=== PATIENT | female | born 1995 | race Two or more races ===

== ENCOUNTER 2017-05-12 16:15 | Emergency (ER) | payer OTHER ==
[2017-05-12 16:24] VITALS: TEMP 98.8; BMI 29.2
--- NOTE | 2017-05-12 16:24 | PDOC ---
History of Present Illness - General History Source: Patient Exam Limitations: No Limitations - History of Present Illness Initial Comments: 05/12/17 18:39 The patient is a 22-year-old female, with a significant past medical history of ulcerative colitis (in remission, not on meds), renal colic, and pcos, who presents to the ED with 2 weeks of progressively worsening left flank pain. Pt states that the pain she is experiencing now is not the same pain she experienced with kidney stones. When the patient had kidney stones she experienced left lower quadrant pain that radiated to her lower back. The patients pain now is localized to her left flank area and is constant and sharp in sensation. She reports that her pain progressively worsened last night. She is unable to lay on the area or stand/sit for long periods due to the pain. The pt thought that her pain was being caused by a cyst so she went to her [facility] doctor yesterday where they performed a transvaginal US. The US was negative for a cyst by her report. She reports that she is urinating fine and is not experiencing any dysuria, hematuria, frequency, urgency, or hesitancy. Pts last bowel movement was today and was normal. The patient has been taking Advil with no relief of her symptoms. She denies any fever, chills, nausea, vomiting, diarrhea, or abdominal pain. <Mariaelena Castro - Last Filed: 05/12/17 18:39> <Judy Zhang - Last Filed: 05/13/17 08:13> - General Chief Complaint: Pain Stated Complaint: LEFT LOWER RIBCAGE PAIN, TENDERNESS Time Seen by Provider: 05/12/17 16:23 Past History <Mariaelena Castro - Last Filed: 05/12/17 18:39> - Past Medical History Asthma: No Diabetes: No GI Disorders: Yes (ulcer colitis, currently on no meds) Disorders: No HTN: No - Surgical History Appendectomy: Yes (01/2012) - Immunization History Td Vaccination: Yes Immunization Up to Date: Yes - Suicide/Smoking/Psychosocial Hx Smoking Status: No Smoking History: Never smoked Have you smoked in the past 12 months: No Number of Cigarettes Smoked Daily: 0 Cigars Per Day: 0 Hx Alcohol Use: No Drug/Substance Use Hx: No Substance Use Type: None <Judy Zhang - Last Filed: 05/13/17 08:13> - Past Medical History Allergies/Adverse Reactions: Allergies Allergy/AdvReac Type Severity Reaction Status Date / Time Penicillins Allergy Verified 05/12/17 16:17 Home Medications: Ambulatory Orders Naproxen [Naprosyn -] 500 mg PO BID #14 tablet 05/12/17 Norgestimate-Ethinyl Estradiol [[id number] Tablet] 1 each PO DAILY 05/12/17 Review of Systems - Review of Systems Able to Perform ROS?: Yes Comments:: 05/12/17 18:39 GENERAL/CONSTITUTIONAL: No fever or chills. No weakness. HEAD, EYES, EARS, NOSE AND THROAT: No change in vision. No ear pain or discharge. No sore throat. GASTROINTESTINAL: No nausea, vomiting, diarrhea or constipation. GENITOURINARY: No dysuria, frequency, or change in urination. CARDIOVASCULAR: No chest pain or shortness of breath. RESPIRATORY: No cough, wheezing, or hemoptysis. MUSCULOSKELETAL: (+)left-sided flank pain. No joint swelling or pain. No neck pain. SKIN: No rash NEUROLOGIC: No headache, vertigo, loss of consciousness, or change in strength/ sensation. ENDOCRINE: No increased thirst. No abnormal weight change. HEMATOLOGIC/LYMPHATIC: No anemia, easy bleeding, or history of blood clots. ALLERGIC/IMMUNOLOGIC: No hives or skin allergy. <Mariaelena Castro - Last Filed: 05/12/17 18:39> *Physical Exam - Vital Signs Last Vital Signs Temp Pulse Resp BP Pulse Ox 98.8 F 118 H 20 135/85 100 05/12/17 16:15 05/12/17 16:15 05/12/17 16:15 05/12/17 16:15 05/12/17 16:15 - Physical Exam Comments: 05/12/17 18:40 GENERAL: Awake, alert, and fully oriented, in no acute distress HEAD: No signs of trauma EYES: PERRLA, EOMI, sclera anicteric, conjunctiva clear ENT: Auricles normal inspection, hearing grossly normal, nares patent, oropharynx clear without exudates. Moist mucosa NECK: Normal ROM, supple, no lymphadenopathy, JVD, or masses LUNGS: Breath sounds equal, clear to auscultation bilaterally. No wheezes, and no crackles HEART: tachy to 110 but regular, normal S1 and S2, no murmurs, rubs or gallops ABDOMEN: Soft, nontender, normoactive bowel sounds. No guarding, no rebound. No masses. +L CVAT EXTREMITIES: Normal range of motion, no edema. No clubbing or cyanosis. No cords, erythema, or tenderness BACK: No midline spinal tenderness in cervical/thoracic/lumbar region NEUROLOGICAL: Normal speech, cranial nerves intact, negative pronator drift, 5/ 5 strength in all 4 extremities, normal sensation to light touch in all 4 extremities, normal cerebellar exam, normal gait, normal reflexes and tone SKIN: Warm, Dry, normal turgor, no rashes or lesions noted. <Mariaelena Castro - Last Filed: 05/12/17 18:39> ED Treatment Course - LABORATORY CBC & Chemistry Diagram: 05/12/17 17:00 05/12/17 17:00 - ADDITIONAL ORDERS Additional order review: Laboratory Results 05/12/17 05/12/17 05/12/17 17:00 17:00 17:00 Sodium 135 L Potassium 3.9 Chloride 106 Carbon Dioxide 23 Anion Gap 6 L BUN 11 Creatinine 0.5 L Creat Clearance w eGFR > 60 Random Glucose 109 H Calcium 9.6 Total Bilirubin 0.6 D AST 26 D ALT 19 Alkaline Phosphatase 42 Total Protein 7.6 Albumin 3.8 Lipase 21 L Urine Color Urine Appearance Urine pH Ur Specific [place] Urine Protein Urine Glucose (UA) Urine Ketones Urine Blood Urine Nitrite Urine Bilirubin Urine Urobilinogen Ur Leukocyte Esterase Urine HCG, Qual Negative 05/12/17 17:00 Sodium Potassium Chloride Carbon Dioxide Anion Gap BUN Creatinine Creat Clearance w eGFR Random Glucose Calcium Total Bilirubin AST ALT Alkaline Phosphatase Total Protein Albumin Lipase Urine Color Yellow Urine Appearance Clear Urine pH 5.5 D Ur Specific [place] 1.025 Urine Protein Negative Urine Glucose (UA) Negative Urine Ketones 1+ H Urine Blood 2+ H Urine Nitrite Negative Urine Bilirubin Negative Urine Urobilinogen 0.2 Ur Leukocyte Esterase Negative Urine HCG, Qual 05/12/17 17:00 RBC 4.90 MCV 85.0 MCHC 33.7 RDW 11.8 MPV 8.6 Neutrophils % 74.3 D Lymphocytes % 18.9 D Monocytes % 5.2 Eosinophils % 1.3 Basophils % 0.3 - Medications Given in the ED: ED Medications Discontinued Medications Generic Name Dose Route Start Last Admin Trade Name Freq PRN Reason Stop Dose Admin Ketorolac Tromethamine 30 mg 05/12/17 18:22 05/12/17 18:24 Toradol Injection - IVPUSH 05/12/17 18:23 30 mg ONCE ONE Administration Morphine Sulfate 2 mg 05/12/17 16:48 05/12/17 17:15 Morphine Injection - IVPUSH 05/12/17 16:49 2 mg ONCE ONE Administration Sodium Chloride 1,000 ml 05/12/17 16:48 05/12/17 17:15 Normal Saline - IV 05/12/17 16:49 1,000 ml ONCE ONE Administration <Mariaelena Castro - Last Filed: 05/12/17 18:39> - LABORATORY CBC & Chemistry Diagram: 05/12/17 17:00 05/12/17 17:00 <Judy Zhang - Last Filed: 05/13/17 08:13> Medical Decision Making - Medical Decision Making 05/12/17 16:49 22-year-old female with a history of renal colic, ulcerative colitis in remission, ACLS presents with left flank pain for 2 weeks. Vitals remarkable for tachycardia at 118. Exam with left CVA tenderness and tenderness to palpation to the left rib cage. Differential includes but is not limited to renal colic versus gastritis versus musculoskeletal pain.. Plan: -UPT -Pain control -UA/Ucx -labs -reassess 05/12/17 19:07 UPT is negative. UA with 2+ blood but no sign of UTI. CT scan with no acute pathology and no evidence of renal colic. CBC with leukocytosis to 17. On reevaluation, the patient reports that her pain is worse when she takes a deep breath. Given the fact that she is on OCPs and was tachycardic on initial evaluation, will check a d-dimer to rule out pulmonary embolism and also obtain a chest x-ray. Patient aware of the plan. Patient has been signed out to [facility] attending Dr. Manning for further evaluation and management. <Judy Zhang - Last Filed: 05/13/17 08:13> *DC/Admit/Observation/Transfer - Attestations Scribe Attestion: 05/12/17 18:40 Documentation prepared by Mariaelena Castro, acting as medical office representative for Judy Zhang MD. <MatthewMariaelena - Last Filed: 05/12/17 18:39> - Attestations Physician Attestion: 05/13/17 08:13 I, Dr. Judy Zhang MD, attest that this document has been prepared under my direction and personally reviewed by me in its entirety. I further attest, that it accurately reflects all work, treatment, procedures and medical decision -making performed by me. <Judy Zhang - Last Filed: 05/13/17 08:13> Diagnosis at time of Disposition: Left flank pain - Discharge Dispostion Disposition: HOME Condition at time of disposition: Stable - Prescriptions Prescriptions: Naproxen [Naprosyn -] 500 mg PO BID #14 tablet - Patient Instructions Additional Instructions: For the pain take Naprosyn 1 tablet twice a day with food do not take on an empty stomach. Is very important that you follow-up with your primary care doctor and have your weight but cell count repeated in 2-3 days to make sure it is coming down and improving. Return to the emergency department immediately with ANY new, persistent or worsening symptoms. Continue any medications as previously prescribed by your physician. . Please make sure your doctor reviews the results of your emergency evaluation. Thank you for coming to the Emergency Department today for your care. It was a pleasure to see you today. Please note that your evaluation is INCOMPLETE until you follow-up with your doctor.
[2017-05-12] MEDS ORDERED: morphine CARPU-JECT 4 MG/1 ML DISP.SYRIN IVPUSH ONE ×2 (16:48→20:08)
[2017-05-12] MEDS ORDERED: SODIUM CHLORIDE 0.9% 500 ML INFUS.BAG IV ONE (16:48)
[2017-05-12] MEDS ORDERED: morphine CARPU-JECT 2 MG/1 ML DISP.SYRIN ONE (17:09)
[2017-05-12 17:19] LABS: URINE APPEARANCE CLEAR; URINE BILIRUBIN NEGATIVE (NEGATIVE); URINE COLOR YELLOW; URINE GLUCOSE (UA) NEGATIVE (NEGATIVE); URINE KETONE 1+ (NEGATIVE)
[2017-05-12 17:21] LABS: PH,URINE 5.5 (4.5-8); URINE BLOOD 2+ (NEGATIVE); URINE LEUK ESTERASE NEGATIVE (NEGATIVE); URINE NITRITE NEGATIVE (NEGATIVE); URINE PROTEIN NEGATIVE (NEGATIVE); URINE UROBILINOGEN 0.2 (0.2-1.0)
[2017-05-12 17:27] LABS: PLATELET COUNT 416 K/MM3 (134-434); RDW 11.8 % (11.6-15.6)
[2017-05-12 17:28] LABS: BASOPHIL 0.3 % (0-2.0); EOSINOPHIL 1.3 % (0-4.5); MCH 28.7 pg (25.7-33.7); MCHC 33.7 g/dl (32.0-36.0); MEAN PLT VOLUME 8.6 fl (7.5-11.1); NEUTROPHILS 74.3 % (42.8-82.8); WHITE BLOOD COUNT 17.4 K/mm3 (4.0-10.8)
[2017-05-12 17:48] LABS: ALBUMIN 3.8 g/dl (3.5-5.0); ALK PHOS 42 U/L (32-92); ANION GAP 6 (8-16); BILIRUBIN,TOTAL 0.6 mg/dl (0.2-1.0); CALCIUM 9.6 mg/dl (8.4-10.2); CO2 23 mmol/L (22-28); CREATININE 0.5 mg/dl (0.6-1.3); GLUCOSE,RANDOM 109 mg/dl (74-106); SGOT/AST 26 U/L (10-42); SGPT/ALT 19 U/L (10-40); TOT PROT 7.6 g/dl (6.4-8.3)
[2017-05-12] MEDS ORDERED: KETOROLAC TROMETHAMINE 15 MG/ML VIAL IVPUSH ONE (18:22)
[2017-05-12] MEDS ORDERED: KETOROLAC TROMETHAMINE 30 MG/1 ML VIAL ONE (18:22)
[2017-05-12] MEDS ORDERED: morphine SULFATE 4 MG/ML VIAL ONE (20:09)
--- NOTE | 2017-05-12 21:32 | PDOC ---
*Physical Exam - Vital Signs Last Vital Signs Temp Pulse Resp BP Pulse Ox 98.8 F 118 H 20 135/85 100 05/12/17 16:15 05/12/17 16:15 05/12/17 16:15 05/12/17 16:15 05/12/17 16:15 ED Treatment Course - LABORATORY CBC & Chemistry Diagram: 05/12/17 17:00 05/12/17 17:00 - ADDITIONAL ORDERS Additional order review: Laboratory Results 05/12/17 05/12/17 05/12/17 17:00 17:00 17:00 Sodium 135 L Potassium 3.9 Chloride 106 Carbon Dioxide 23 Anion Gap 6 L BUN 11 Creatinine 0.5 L Creat Clearance w eGFR > 60 Random Glucose 109 H Calcium 9.6 Total Bilirubin 0.6 D AST 26 D ALT 19 Alkaline Phosphatase 42 Total Protein 7.6 Albumin 3.8 Lipase 21 L Urine Color Urine Appearance Urine pH Ur Specific [place] Urine Protein Urine Glucose (UA) Urine Ketones Urine Blood Urine Nitrite Urine Bilirubin Urine Urobilinogen Ur Leukocyte Esterase Urine HCG, Qual Negative 05/12/17 17:00 Sodium Potassium Chloride Carbon Dioxide Anion Gap BUN Creatinine Creat Clearance w eGFR Random Glucose Calcium Total Bilirubin AST ALT Alkaline Phosphatase Total Protein Albumin Lipase Urine Color Yellow Urine Appearance Clear Urine pH 5.5 D Ur Specific [place] 1.025 Urine Protein Negative Urine Glucose (UA) Negative Urine Ketones 1+ H Urine Blood 2+ H Urine Nitrite Negative Urine Bilirubin Negative Urine Urobilinogen 0.2 Ur Leukocyte Esterase Negative Urine HCG, Qual 05/12/17 17:00 RBC 4.90 MCV 85.0 MCHC 33.7 RDW 11.8 MPV 8.6 Neutrophils % 74.3 D Lymphocytes % 18.9 D Monocytes % 5.2 Eosinophils % 1.3 Basophils % 0.3 - Medications Given in the ED: ED Medications Discontinued Medications Generic Name Dose Route Start Last Admin Trade Name Freq PRN Reason Stop Dose Admin Ketorolac Tromethamine 30 mg 05/12/17 18:22 05/12/17 18:24 Toradol Injection - IVPUSH 05/12/17 18:23 30 mg ONCE ONE Administration Morphine Sulfate 2 mg 05/12/17 16:48 05/12/17 17:15 Morphine Injection - IVPUSH 05/12/17 16:49 2 mg ONCE ONE Administration Morphine Sulfate 4 mg 05/12/17 20:08 05/12/17 20:11 Morphine Injection - IVPUSH 05/12/17 20:09 4 mg ONCE ONE Administration Sodium Chloride 1,000 ml 05/12/17 16:48 05/12/17 17:15 Normal Saline - IV 05/12/17 16:49 1,000 ml ONCE ONE Administration Progress Note - Progress Note Progress Note: Care of this patient was transferred to tn from Dr. Knight at 1900 hrs. Patient is a 22-year-old female who comes in complaining of pleuritic type left lower lateral chest/flank/upper abdominal pain. Patient had a complete workup including CBC, comp, urinalysis, and an abdominal CT. Patient does have an elevated white count of 17.4 but no left shift. Patient has a d-dimer that is still pending at this time, patient had a CT of her abdomen and pelvis that was negative for any acute pathology. Patient also saw her OB prior to coming in today and had a trans-vaginal ultrasound that was negative for any acute pathology as per report from patient. Patient has significant pain here in the emergency room and has required morphine as well as Toradol. Some patient also was tachycardic on arrival in the emergency room with a heart rate of 118. Patient is given fluids and her last evaluation of her heart rate was 108. 22:30 Patient's d-dimer came back mildly elevated, the patient is on control pills I will do a CT Angiof her chest to rule out PE. 23:[address] Angio of her chest was negative for any acute pathology. Assessment and plan: This is a 22-year-old female with pleuritic type left flank /lower chest pain. Patient does have a complete workup including CAT scan of her chest abdomen pelvis and a ultrasound of her pelvis. Patient had lab work that was remarkable for a 17,000 white count with no left shift otherwise a mildly elevated d-dimer and normal rest of her evaluation with the exception of her urinalysis which did show small amount of blood and leukocytes. Patient does have a history of renal colic however a CAT scan of the abdomen and pelvis did not reveal any evidence of kidney stones or urinary/kidney pathology It is uncertain what the etiology of patient's white count, as the differential is normal. However given the extensive workup patient had which was otherwise normal patient will be discharged and I told her to follow up with her primary care doctor in 2-3 days to have the white count repeated to make sure it is coming down.. Patient discharged home with her mother. *DC/Admit/Observation/Transfer Diagnosis at time of Disposition: Left flank pain - Discharge Dispostion Disposition: HOME Condition at time of disposition: Stable Admit: No - Referrals - Patient Instructions Additional Instructions: For the pain take Naprosyn 1 tablet twice a day with food do not take on an empty stomach. Is very important that you follow-up with your primary care doctor and have your weight but cell count repeated in 2-3 days to make sure it is coming down and improving. Return to the emergency department immediately with ANY new, persistent or worsening symptoms. Continue any medications as previously prescribed by your physician. . Please make sure your doctor reviews the results of your emergency evaluation. Thank you for coming to the Emergency Department today for your care. It was a pleasure to see you today. Please note that your evaluation is INCOMPLETE until you follow-up with your doctor. - Post Discharge Activity
[2017-05-12 21:57] LABS: URINE BACTERIA FEW /hpf (NEGATIVE); URINE WBC 0-2 (0-5)
[2017-05-12] MEDS ORDERED: ACETAMINOPHEN 1000 MG/100 ML VIAL (NON FORMULARY) IVPB ONE (23:23)
[2017-05-12] MEDS ORDERED: ACETAMINOPHEN INJECTION 100 ML IVPB ONE (23:27)
[2017-05-13 00:12] VITALS: BP 112/72; PULSE 88
== END 2017-05-13 00:12 | disposition home or self-care (01) ==
LOC: FER 16:15
PROC: 3E033NZ Introduction of Analgesics, Hypnotics, Sedatives into Peripheral Vein, Percutaneous Approach (ICD-10-PCS; principal; 2017-05-12)
PROC: 3E0333Z Introduction of Anti-inflammatory into Peripheral Vein, Percutaneous Approach (ICD-10-PCS; 2017-05-12)
PROC: 3E0337Z Introduction of Electrolytic and Water Balance Substance into Peripheral Vein, Percutaneous Approach (ICD-10-PCS; 2017-05-12)
DX: R10.32 Left lower quadrant pain (principal)
CPT/HCPCS: 36415; 71020-TC; 71275-TC; 74176-TC; 80053; 81003; 81015; 83690; 84703; 85025; 85379; 87086; 99284-25

== ENCOUNTER 2017-07-27 12:52 | Emergency (ER) | payer OTHER ==
[2017-07-27 12:58] VITALS: BP 142/86; PULSE 84; TEMP 97.9; BMI 31.8
[2017-07-27 13:35] LABS: URINE APPEARANCE Clear; URINE BILIRUBIN Negative (NEGATIVE); URINE GLUCOSE (UA) Negative (NEGATIVE); URINE KETONE Negative (NEGATIVE); URINE LEUK ESTERASE Negative (NEGATIVE); URINE NITRITE Negative (NEGATIVE); URINE PROTEIN Negative (NEGATIVE); URINE UROBILINOGEN 0.2 (0.2-1.0)
[2017-07-27 13:37] LABS: HCG,QUALITATIVE URINE NEGATIVE
[2017-07-27 13:42] LABS: URINE BLOOD Trace-intact (NEGATIVE); URINE COLOR YELLOW
[2017-07-27 13:48] LABS: BASO % 0.5 % (0-2.0); EOS % 6.1 % (0-4.5); HEMATOCRIT 40.6 % (32.4-45.2); HEMOGLOBIN 13.8 GM/dl (10.7-15.3); LYMPH % 32.9 % (8-40); MEAN CELL VOLUME 85.2 fl (80-96); MEAN PLT VOLUME 7.7 fl (7.5-11.1); MONO % 5.6 % (3.8-10.2); NEUT % 54.9 % (42.8-82.8); PLATELET COUNT 386 K/MM3 (134-434); RBC 4.77 M/mm3 (3.60-5.2); RDW 12.4 % (11.6-15.6); WHITE BLOOD COUNT 9.4 K/mm3 (4.0-10.8)
[2017-07-27 14:03] LABS: ALBUMIN 3.9 g/dl (3.5-5.0); ALK PHOS 53 U/L (32-92); BLOOD UREA NITROGEN 15 mg/dl (7-18); CALCIUM 9.3 mg/dl (8.4-10.2); GLUCOSE,RANDOM 110 mg/dl (74-106); SGOT/AST 20 U/L (10-42); SGPT/ALT 29 U/L (10-40); TOT PROT 7.5 g/dl (6.4-8.3)
--- NOTE | 2017-07-27 14:05 | PDOC ---
History of Present Illness - General Chief Complaint: Blood Pressure Problem Stated Complaint: HIGH BP Time Seen by Provider: 07/27/17 13:05 History Source: Patient Exam Limitations: No Limitations - History of Present Illness Initial Comments: 07/27/17 14:02 22-year-old female with history of polycystic ovarian syndrome, ulcerative colitis not on medications presents with right eye vision loss and headache and only blood pressure. 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 The symptoms resolved afterwards and the patient has been a symptomatically. Her residential real estate sales manager suggested that she goes to the hospital but the patient did not as she had an appointment with her house painter today. The patient went to her doctor's and was feeling a symptomatically. But noted that her blood pressures were elevated, to which the patient did not recall what the doctors recorded. Given the history, the patient 's house painter sent the patient to the immersed department for an evaluation. She denies any other numbness, weakness or visual acuity changes. She denies chest pain or shortness of breath. She denies recent illnesses, fevers, chills, cough, vomiting. First-time episode. Denies prior history of migraines. Past History - Past Medical History Allergies/Adverse Reactions: Allergies Allergy/AdvReac Type Severity Reaction Status Date / Time Penicillins Allergy Verified 07/27/17 12:58 Home Medications: Ambulatory Orders NK [No Known Home Medication] 07/27/17 Asthma: No COPD: No Diabetes: No GI Disorders: Yes (ulcer colitis, currently on no meds) Disorders: No HTN: No - Surgical History Appendectomy: Yes (01/2012) - Immunization History Td Vaccination: Yes Immunization Up to Date: Yes - Suicide/Smoking/Psychosocial Hx Smoking Status: No Smoking History: Never smoked Have you smoked in the past 12 months: No Number of Cigarettes Smoked Daily: 0 Cigars Per Day: 0 Hx Alcohol Use: No Drug/Substance Use Hx: No Substance Use Type: None Review of Systems - Review of Systems Able to Perform ROS?: Yes Comments:: 07/27/17 14:04 GENERAL/CONSTITUTIONAL: No fever, weakness. HEAD, EYES, EARS, NOSE AND THROAT: No change in vision. No ear pain or discharge. No sore throat. CARDIOVASCULAR: No chest pain or shortness of breath. RESPIRATORY: No cough, wheezing, or hemoptysis. GASTROINTESTINAL: No abdominal pain, nausea, vomiting, diarrhea, or decreased PO intolerance. GENITOURINARY: No dysuria, frequency, or change in urination. MUSCULOSKELETAL: No joint or muscle swelling or pain. No neck or back pain. SKIN: No rash NEUROLOGIC: +headache, with right eye visual acuity loss. ENDOCRINE: No increased thirst. No abnormal weight change. HEMATOLOGIC/LYMPHATIC: No anemia, easy bleeding, or history of blood clots. ALLERGIC/IMMUNOLOGIC: No hives or skin allergy. *Physical Exam - Vital Signs Last Vital Signs Temp Pulse Resp BP Pulse Ox 97.9 F 84 22 142/86 100 07/27/17 12:54 07/27/17 12:54 07/27/17 12:54 07/27/17 12:54 07/27/17 12:54 - Physical Exam Comments: 07/27/17 14:05 GENERAL: Awake, alert, and fully oriented, in no acute distress. HEAD: No signs of trauma EYES: PERRLA, EOMI, sclera anicteric, conjunctiva clear. 20/30 OU. No field cut deficits. ENT: Auricles normal inspection, hearing grossly normal, nares patent NECK: Normal ROM, supple LUNGS: Breath sounds equal, clear to auscultation bilaterally. No wheezes, and no crackles HEART: Regular rate and rhythm, normal S1 and S2, no murmurs, rubs or gallops ABDOMEN: Soft, nontender, normoactive bowel sounds. No guarding, no rebound. No masses EXTREMITIES: Normal range of motion, no edema. No clubbing or cyanosis. No cords, erythema, or tenderness NEUROLOGICAL: Cranial nerves II through intact. Normal speech, normal gait. 5/ 5 strength upper and lower extremities. No dysmetria. SKIN: Warm, Dry, normal turgor, no rashes or lesions noted. Heart Score/ECG Review #1 ECG reviewed & interpreted by me at: 14:00 07/27/17 14:01 NSR 67, no std/sal, normal axis, normal intervals, QTC 429 msec, T wave flat III ED Treatment Course - LABORATORY CBC & Chemistry Diagram: 07/27/17 13:30 07/27/17 13:30 - ADDITIONAL ORDERS Additional order review: Laboratory Results 07/27/17 13:15 Urine Color Yellow Urine Appearance Clear Urine pH 7.0 Ur Specific [place] 1.020 Urine Protein Negative Urine Glucose (UA) Negative Urine Ketones Negative Urine Blood Trace-intact H Urine Nitrite Negative Urine Bilirubin Negative Urine Urobilinogen 0.2 Ur Leukocyte Esterase Negative Urine HCG, Qual Negative 07/27/17 13:30 RBC 4.77 MCV 85.2 MCHC 34.0 RDW 12.4 MPV 7.7 Neutrophils % 54.9 Lymphocytes % 32.9 Monocytes % 5.6 Eosinophils % 6.1 H Basophils % 0.5 - RADIOLOGY Radiology Studies Ordered: Category Date Time Status HEAD CT WITHOUT CONTRAST [CT] Stat CT Scan 07/27/17 13:12 Ordered Medical Decision Making - Medical Decision Making 07/27/17 14:10 Vital Signs Temp Pulse Resp BP Pulse Ox 97.9 F 84 22 142/86 100 07/27/17 12:54 07/27/17 12:54 07/27/17 12:54 07/27/17 12:54 07/27/17 12:54 Given his patient history of ulcerative colitis, the differential is broad and and should consider neurological etiology. At this time, though patient is at risk for clotting disorders, there is no clinical evidence of stroke. However, we'll obtain a head CT. Visual acuity is unchanged. Case is discussed with neurologist Dr. Pineda. States that this could potentially been ocular migraines or complicated migraine. However, agrees with plan with a head CT and if negative, the patient can follow-up with him as an outpatient this week. We' ll discuss case with an machine molder to see we can refer the patient for an outpatient follow-up. At this time, the patient is asymptomatic. 07/27/17 15:21 CBC, BMP 07/27/17 13:30 07/27/17 13:30 CMP Sodium 137 mmol/L (136-145) 07/27/17 13:30 Potassium 4.0 mmol/L (3.5-5.1) 07/27/17 13:30 Chloride 104 mmol/L (98-107) 07/27/17 13:30 Carbon Dioxide 22 mmol/L (22-28) 07/27/17 13:30 Anion Gap 11 (8-16) 07/27/17 13:30 BUN 15 mg/dl (7-18) D 07/27/17 13:30 Creatinine < 0.8 mg/dl (0.6-1.3) D 07/27/17 13:30 Creat Clearance w eGFR > 60 (>60) 07/27/17 13:30 Random Glucose 110 mg/dl (74-106) H 07/27/17 13:30 Calcium 9.3 mg/dl (8.4-10.2) 07/27/17 13:30 Total Bilirubin < 0.5 mg/dl (0.2-1.0) 07/27/17 13:30 AST 20 U/L (10-42) D 07/27/17 13:30 ALT 29 U/L (10-40) D 07/27/17 13:30 Alkaline Phosphatase 53 U/L (32-92) D 07/27/17 13:30 Troponin I < 0.03 ng/ml (0.00-0.06) 07/27/17 13:30 Total Protein 7.5 g/dl (6.4-8.3) 07/27/17 13:30 Albumin 3.9 g/dl (3.5-5.0) 07/27/17 13:30 Urine Test Results Urine Color Yellow 07/27/17 13:15 Urine Appearance Clear 07/27/17 13:15 Urine pH 7.0 (4.5-8) 07/27/17 13:15 Ur Specific [place] 1.020 (1.005-1.025) 07/27/17 13:15 Urine Protein Negative (NEGATIVE) 07/27/17 13:15 Urine Glucose (UA) Negative (NEGATIVE) 07/27/17 13:15 Urine Ketones Negative (NEGATIVE) 07/27/17 13:15 Urine Blood Trace-intact (NEGATIVE) H 07/27/17 13:15 Urine Nitrite Negative (NEGATIVE) 07/27/17 13:15 Urine Bilirubin Negative (NEGATIVE) 07/27/17 13:15 Ur Leukocyte Esterase Negative (NEGATIVE) 07/27/17 13:15 Urine RBC 3-5 /hpf (0-3) 07/27/17 13:15 Urine WBC None seen (0-5) 07/27/17 13:15 Ur Epithelial Cells 3-5 /HPF 07/27/17 13:[address] head is negative. I have discussed the case with neurologist Dr. Pineda. Given that the patient is asymptomatic and neurologically intact and a negative head CT, the patient can follow-up as an outpatient. I've spoken with Dr. Ghosh the machine molder who agrees that this may be something that can follow-up as an outpatient. Suggest that this may potentially be an ocular migraine. The patient is a symptomatically and feels well like to go home. EKG and the blood work suggests no acute findings at this time. I discussed the physical exam findings, ancillary test results and final diagnoses with the patient. I answered all of the patient's questions. The patient was satisfied with the care received and felt comfortable with the discharge plan and treatment plan. The patient will call their primary care physician within 24 hours to arrange follow-up and will return to the Emergency Department with any new, persistant or worsening symptoms. *DC/Admit/Observation/Transfer Diagnosis at time of Disposition: Ocular migraine - Discharge Dispostion Disposition: HOME Condition at time of disposition: Improved Admit: No - Referrals Referrals: Umberto Brito MD [Staff Physician] - Gregorio Pineda MD [Staff Physician] - - Patient Instructions Printed Discharge Instructions: DI for Migraine Additional Instructions: Your head CT, blood work, and EKG are normal. Please follow up with the neurologist and eye doctor. Call today to schedule an appointment for this week. If you have any worsening symptoms such as eye vision loss, please return to the ER. - Post Discharge Activity
[2017-07-27 14:17] LABS: BILIRUBIN,TOTAL < 0.5 mg/dl (0.2-1.0); CREATININE < 0.8 mg/dl (0.6-1.3)
[2017-07-27 14:28] LABS: ANION GAP 11 (8-16); CHLORIDE 104 mmol/L (98-107); CO2 22 mmol/L (22-28); SODIUM 137 mmol/L (136-145)
[2017-07-27 14:31] LABS: URINE WBC NONE SEEN (0-5)
--- NOTE | 2017-07-28 13:33 | EKG ---
Test Reason : Blood Pressure : / mmHG Vent. Rate : 067 BPM Atrial Rate : 067 BPM P-R Int : 158 ms QRS Dur : 088 ms QT Int : 406 ms P-R-T Axes : 044 040 025 degrees QTc Int : 429 ms POOR DATA QUALITY, INTERPRETATION MAY BE ADVERSELY AFFECTED NORMAL SINUS RHYTHM NORMAL ECG NO PREVIOUS ECGS AVAILABLE Confirmed by MD Hou Daniel ([id number]) on 07/28/2017 1:32:46 PM Referred By: MELANIE Confirmed By:Louis Hou MD
== END 2017-07-27 15:29 | disposition home or self-care (01) ==
LOC: FER 12:52
DX: G43.809 Other migraine, not intractable, without status migrainosus (principal); E28.2 Polycystic ovarian syndrome
CPT/HCPCS: 36415; 70450-TC; 80053; 81003; 81015; 84484; 84703; 85025; 87086; 93005; 99282-25

== ENCOUNTER 2018-05-11 12:04 | Emergency (ER) | payer OTHER ==
[2018-05-11 12:16] VITALS: TEMP 98.2; BMI 32.1
[2018-05-11] MEDS ORDERED: ACETAMINOPHEN 1000 MG/100 ML VIAL (NON FORMULARY) IVPB ONE (12:30)
[2018-05-11] MEDS ORDERED: SODIUM CHLORIDE 1,000 ML IV STA (12:30)
[2018-05-11] MEDS ORDERED: FAMOTIDINE 20 MG/50 ML IVPB 20 MG/50 ML MG IVPB ONE ×2 (12:35→12:49)
--- NOTE | 2018-05-11 12:36 | PDOC ---
History of Present Illness - General Chief Complaint: Bleeding from Anus Stated Complaint: BLOOD IN STOOL Time Seen by Provider: 05/11/18 12:07 - History of Present Illness Initial Comments: 05/11/18 12:32 23 F with h/o UC, PCOS presenting to ED with abdominal pain and rectal bleeding. Pt reports 1 week of cramp-like pain, localized to the L side of her abdomen. Denies any association with eating. Pt denies F/C. Endorses nausea without vomiting. Pt also reports occasional sharp pain in her LUQ. Denies any pelvic pain, denies vaginal discharge or bleeding. Endorses chronic flank pain without change. Pt states that since last night, she has been having BRBPR. Pt reports brown stool mixed with red streaks. Denies dark tarry stool.s Pt attempted to see her GI today but was unable to get appointment. Is not currently on any meds for UC as her current GI told her she does not have it. However, her previous GI doctor told her she did have UC. Past History - Past Medical History Allergies/Adverse Reactions: Allergies Allergy/AdvReac Type Severity Reaction Status Date / Time Penicillins Allergy Mild Rash Verified 05/11/18 12:05 Home Medications: Ambulatory Orders Famotidine [Pepcid -] 20 mg PO DAILY #30 tablet 05/11/18 Asthma: No COPD: No Diabetes: No GI Disorders: Yes (ulcer colitis, currently on no meds) Disorders: No HTN: No Other medical history: PCOS - Surgical History Appendectomy: Yes (01/2012) - Immunization History Td Vaccination: Yes Immunization Up to Date: Yes - Suicide/Smoking/Psychosocial Hx Smoking Status: No Smoking History: Never smoked Have you smoked in the past 12 months: No Number of Cigarettes Smoked Daily: 0 Cigars Per Day: 0 Information on smoking cessation initiated: No Hx Alcohol Use: No Drug/Substance Use Hx: No Substance Use Type: None Review of Systems - Review of Systems Comments:: 05/11/18 12:35 GENERAL/CONSTITUTIONAL: No fever or chills. No weakness. HEAD, EYES, EARS, NOSE AND THROAT: No change in vision. No ear pain or discharge. No sore throat. CARDIOVASCULAR: No chest pain, no shortness of breath, no loss of consciousness RESPIRATORY: No cough, wheezing, or hemoptysis. GASTROINTESTINAL: + abdominal pain and nausea, + BRBPR, no vomiting, diarrhea or constipation. GENITOURINARY: No dysuria, frequency, or change in urination. MUSCULOSKELETAL: No joint or muscle swelling or pain. No neck or back pain. SKIN: No rash NEUROLOGIC: No vertigo, no change in strength/sensation. ENDOCRINE: No increased thirst. No abnormal weight change. HEMATOLOGIC/LYMPHATIC: No anemia, easy bleeding, or history of blood clots. ALLERGIC/IMMUNOLOGIC: No hives or skin allergy. *Physical Exam - Vital Signs Last Vital Signs Temp Pulse Resp BP Pulse Ox 98.2 F 86 16 132/85 99 05/11/18 12:05 05/11/18 12:05 05/11/18 12:05 05/11/18 12:05 05/11/18 12:05 - Physical Exam Comments: 05/11/18 12:36 "GENERAL: Awake, alert, and fully oriented, in no acute distress. HEAD: No signs of trauma EYES: PERRLA, EOMI, sclera anicteric, conjunctiva clear ENT: Auricles normal inspection, hearing grossly normal, nares patent, oropharynx clear without exudates. Moist mucosa NECK: Nontender, no stepoffs, Normal ROM, supple, no lymphadenopathy, JVD, or masses LUNGS: Breath sounds equal, clear to auscultation bilaterally. No wheezes, and no crackles HEART: Regular rate and rhythm, normal S1 and S2, no murmurs, rubs or gallops ABDOMEN: + LUQ and LLQ tenderness, normoactive bowel sounds. No guarding, no rebound. No masses EXTREMITIES: Normal range of motion, no edema. No clubbing or cyanosis. No cords, erythema, or tenderness NEUROLOGICAL: Cranial nerves II through XII intact. 5/5 strength and sensation in all extremities, Normal speech, normal gait, normal cerebellar function SKIN: Warm, Dry, normal turgor, no rashes or lesions noted. RECTAL: brown stool + red streaks, no hemorrhoids, no abscess Moderate Sedation - Procedure Monitoring Vital Signs: Procedure Monitoring Vital Signs Temperature 98.2 F 05/11/18 12:05 Pulse Rate 86 05/11/18 12:05 Respiratory Rate 16 05/11/18 12:05 Blood Pressure 132/85 05/11/18 12:05 O2 Sat by Pulse Oximetry (%) 99 05/11/18 12:05 ED Treatment Course - LABORATORY CBC & Chemistry Diagram: 05/11/18 12:45 05/11/18 12:45 - RADIOLOGY Radiology Studies Ordered: Category Date Time Status ABDOMEN & PELVIS CT WITH CONTR [CT] Stat CT Scan 05/11/18 12:30 Ordered Medical Decision Making - Medical Decision Making 05/11/18 12:36 23 F with ?h/o UC presenting with L sided abdominal pain. Possible UC flare vs diverticulitis vs colitis. Pt also with blood-streaked stool. No evidence of significant bleed or upper GI bleed on exam. Pt well appearing with stable vitals. - Labs, T&S, coags - CTAP 05/11/18 13:57 Labs wnl Pt with normal H/H, no signs of anemia. Likely minimal blood loss 2/2 GI bleed. UA unremarkable Pending CT read 05/11/18 14:21 CT unremarkable. Pt reassessed - pain has improved with pepcid and IV tylenol. Suspect gastritis as etiology of pt's pain. Pt is well appearing, with normal vitals. Clinically stable for DC at this time. I discussed the physical exam findings, ancillary test results and final diagnoses with the patient. I answered all of the patient's questions. The patient was satisfied with the care received and felt comfortable with the discharge plan and treatment plan. The patient agrees to follow up with the primary care physician within 24-72 hours. *DC/Admit/Observation/Transfer Diagnosis at time of Disposition: Abdominal pain - Discharge Dispostion Disposition: HOME Condition at time of disposition: Stable - Prescriptions Prescriptions: Famotidine [Pepcid -] 20 mg PO DAILY #30 tablet - Referrals Referrals: Guerrero Ponce MD [Staff Physician] - - Patient Instructions Printed Discharge Instructions: DI for Abdominal Pain-Adult, DI for Rectal Bleeding Additional Instructions: Your bloodwork and CT scan were normal today. However, you still need to follow up with a GI doctor for further evaluation of your abdominal pain and rectal bleeding. Please call the number provided to make an appointment within 1 week. If you experience worsening pain, vomiting, bleeding, or any other concerning symptoms, return to the ER immediately. - Post Discharge Activity Forms/Work/School Notes: Back to Work - Attestations Physician Attestion: 05/11/18 14:26 I, Dr. Fuad Landeros MD, attest that this document has been prepared under my direction and personally reviewed by me in its entirety. I further attest, that it accurately reflects all work, treatment, procedures and medical decision -making performed by me.
[2018-05-11] MEDS ORDERED: ACETAMINOPHEN INJECTION 100 ML IVPB ONE (12:49)
[2018-05-11 12:55] LABS: HCG,QUALITATIVE URINE Negative
[2018-05-11 13:10] LABS: BASO % 0.6 % (0-2.0)
[2018-05-11 13:14] LABS: URINE APPEARANCE Clear; URINE BILIRUBIN Negative (NEGATIVE); URINE COLOR Yellow; URINE GLUCOSE (UA) Negative (NEGATIVE); URINE KETONE Negative (NEGATIVE); URINE LEUK ESTERASE Negative (NEGATIVE); URINE NITRITE Negative (NEGATIVE); URINE PROTEIN Negative (NEGATIVE); URINE UROBILINOGEN 0.2 (0.2-1.0)
[2018-05-11 13:23] LABS: EOS % 6.3 % (0-4.5); HEMATOCRIT 40.9 % (32.4-45.2); LYMPH % 35.4 % (8-40); MCH 27.5 pg (25.7-33.7); MCHC 31.8 g/dl (32.0-36.0); MEAN CELL VOLUME 86.5 fl (80-96); MEAN PLT VOLUME 8.3 fl (7.5-11.1); NEUT % 51.7 % (42.8-82.8); PLATELET COUNT 365 K/MM3 (134-434); RBC 4.73 M/mm3 (3.60-5.2); RDW 12.5 % (11.6-15.6); WHITE BLOOD COUNT 8.7 K/mm3 (4.0-10.8)
[2018-05-11 13:30] LABS: EPI CELLS FEW /HPF; URINE RBC 0-2 /hpf (0-3); URINE WBC 0-2 (0-5)
[2018-05-11 13:33] LABS: ALBUMIN 3.8 g/dl (3.5-5.0); ALK PHOS 55 U/L (32-92); ANION GAP 6 MMOL/L (8-16); BILIRUBIN,TOTAL 0.5 mg/dl (0.2-1.0); BLOOD UREA NITROGEN 17 mg/dl (7-18); CALCIUM 8.9 mg/dl (8.4-10.2); CHLORIDE 104 mmol/L (98-107); CO2 25 mmol/L (22-28); CREATININE 0.6 mg/dl (0.6-1.3); GLUCOSE,RANDOM 116 mg/dl (74-106); POTASSIUM 4.3 mmol/L (3.5-5.1); SGOT/AST 16 U/L (10-42); SGPT/ALT 20 U/L (10-40); SODIUM 135 mmol/L (136-145); TOT PROT 7.2 g/dl (6.4-8.3)
[2018-05-11] MEDS ORDERED: KETOROLAC TROMETHAMINE 30 MG/1 ML VIAL IVPUSH ONE (13:47)
[2018-05-11] MEDS ORDERED: KETOROLAC TROMETHAMINE 30 MG/1 ML VIAL ONE (14:13)
[2018-05-11 14:26] LABS: LIPASE 158 U/L (73-393)
[2018-05-11 14:37] VITALS: BP 123/77; PULSE 56
== END 2018-05-11 14:38 | disposition home or self-care (01) ==
LOC: FER 12:04
PROC: 3E033NZ Introduction of Analgesics, Hypnotics, Sedatives into Peripheral Vein, Percutaneous Approach (ICD-10-PCS; principal; 2018-05-11)
PROC: 3E033GC Introduction of Other Therapeutic Substance into Peripheral Vein, Percutaneous Approach (ICD-10-PCS; 2018-05-11)
PROC: 3E0333Z Introduction of Anti-inflammatory into Peripheral Vein, Percutaneous Approach (ICD-10-PCS; 2018-05-11)
PROC: 3E0337Z Introduction of Electrolytic and Water Balance Substance into Peripheral Vein, Percutaneous Approach (ICD-10-PCS; 2018-05-11)
DX: R10.2 Pelvic and perineal pain (principal)
CPT/HCPCS: 36415; 74177-TC; 80053; 81003; 81015; 83690; 84703; 85025; 85730; 86850; 86900; 86901; 87086; 99282-25; J0131; J7030

== ENCOUNTER 2020-02-12 18:00 | Emergency (ER) | payer OTHER ==
[2020-02-12 18:12] VITALS: BMI 32.1
[2020-02-12] MEDS ORDERED: ACETAMINOPHEN 1000 MG/100 ML VIAL (NON FORMULARY) IVPB ONE (18:22)
[2020-02-12] MEDS ORDERED: SODIUM CHLORIDE 1,000 ML IV STA (18:22)
[2020-02-12] MEDS ORDERED: ONDANSETRON 4 MG/2 ML VIAL IVPB ONE (18:22)
--- NOTE | 2020-02-12 18:28 | PDOC ---
History of Present Illness - General Chief Complaint: Nausea Stated Complaint: NAUSEA, FEVER Time Seen by Provider: 02/12/20 18:04 - History of Present Illness Initial Comments: 02/12/20 18:23 24 F @ 5 wks by LMP presenting to ED with fever. Pt states that she started having a fever today, Tmax 101 at home. She denies any other symptoms. She endorses daily nausea due to . Denies vomiting. Denies abdominal pain. Denies any vaginal bleeding or cramps. No abnormal discharge. Pt is by IUI and states she urinates frequently because she is on progesterone but denies any dysuria. Denies flank pain. Pt took tylenol 500mg at 4pm today. Past History - Medical History Allergies/Adverse Reactions: Allergies Allergy/AdvReac Type Severity Reaction Status Date / Time Penicillins Allergy Mild Rash Verified 02/12/20 18:03 Home Medications: Ambulatory Orders Metformin HCl [Glucophage] 1,000 mg PO HS 02/12/20 Progesterone, Micronized [Progesterone] 200 mg PO QID 02/12/20 Pyridoxine HCl (Vitamin B6) [Vitamin B-6] 25 mg PO TID #30 tablet 02/12/20 Asthma: No COPD: No Diabetes: No GI Disorders: Yes (ulcer colitis, currently on no meds) Disorders: Yes (PCOS) HTN: No Other medical history: states she is 5 wks aog - Surgical History Appendectomy: Yes - Reproductive History Is Patient Now?: Yes - Immunization History Td Vaccination: Yes Immunization Up to Date: Yes - Psycho-Social/Smoking History Smoking Status: No Smoking History: Never smoked Have you smoked in the past 12 months: No Number of Cigarettes Smoked Daily: 0 Cigars Per Day: 0 Information on smoking cessation initiated: No - Substance Abuse Hx (Audit-C & DAST Scrn) How often the patient has a drink containing alcohol: Never Score: In Men: 4 or > Positive; In Women: 3 or > Positive: 0 Screen Result (Pos requires Nsg. Audit-10AR): Negative In the last yr the pt used illegal drug/Rx for NonMed reason: No Score: Yes response is considered Positive: 0 Screen Result (Positive result requires Nsg. DAST-10): Negative Review of Systems - Review of Systems Comments:: 02/12/20 18:28 GENERAL/CONSTITUTIONAL: + fever, no chills. No weakness. HEAD, EYES, EARS, NOSE AND THROAT: No change in vision. No ear pain or discharge. No sore throat. CARDIOVASCULAR: No chest pain, no shortness of breath, no loss of consciousness RESPIRATORY: No cough, wheezing, or hemoptysis. GASTROINTESTINAL: No nausea, vomiting, diarrhea or constipation. GENITOURINARY: No dysuria, frequency, or change in urination. MUSCULOSKELETAL: No joint or muscle swelling or pain. No neck or back pain. SKIN: No rash NEUROLOGIC: No vertigo, no change in strength/sensation. ENDOCRINE: No increased thirst. No abnormal weight change. HEMATOLOGIC/LYMPHATIC: No anemia, easy bleeding, or history of blood clots. ALLERGIC/IMMUNOLOGIC: No hives or skin allergy. *Physical Exam - Vital Signs Last Vital Signs Temp Pulse Resp BP Pulse Ox 101.4 F H 142 H 20 138/83 99 02/12/20 18:00 02/12/20 18:00 02/12/20 18:00 02/12/20 18:00 02/12/20 18:00 - Physical Exam 02/12/20 18:28 "GENERAL: Awake, alert, and fully oriented, in no acute distress. HEAD: No signs of trauma EYES: PERRLA, EOMI, sclera anicteric, conjunctiva clear ENT: Auricles normal inspection, hearing grossly normal, nares patent, oropharynx clear without exudates. Moist mucosa NECK: Nontender, no stepoffs, Normal ROM, supple, no lymphadenopathy, JVD, or masses LUNGS: Breath sounds equal, clear to auscultation bilaterally. No wheezes, and no crackles HEART: Regular rate and rhythm, normal S1 and S2, no murmurs, rubs or gallops ABDOMEN: Soft, nontender, normoactive bowel sounds. No guarding, no rebound. No masses EXTREMITIES: Normal range of motion, no edema. No clubbing or cyanosis. No cords, erythema, or tenderness NEUROLOGICAL: Cranial nerves II through XII intact. 5/5 strength and sensation in all extremities, Normal speech, normal gait, normal cerebellar function SKIN: Warm, Dry, normal turgor, no rashes or lesions noted. ED Treatment Course - LABORATORY CBC & Chemistry Diagram: 02/12/20 18:42 02/12/20 18:47 Medical Decision Making - Medical Decision Making 02/12/20 18:28 24 F @ 5 weeks presenting with fever. No other localizing symptoms. - Labs, UA, UCx - COVID swab - IVF, tylenol Pt signed out to Dr. Daly at 7 PM, pending labs and re-evaluation Discharge - Discharge Information Problems reviewed: Yes Clinical Impression/Diagnosis: Nausea Fever Qualifiers: Fever type: unspecified Qualified Code(s): R50.9 - Fever, unspecified Condition: Stable Disposition: HOME - Additional Discharge Information Prescriptions: Pyridoxine HCl (Vitamin B6) [Vitamin B-6] 25 mg PO TID #30 tablet - Follow up/Referral Referrals: Debbie Erickson MD [Non Staff, Medical] - - Patient Discharge Instructions Patient Printed Discharge Instructions: DI for Fever (Symptom) -- Adult Additional Instructions: Take 1000mg tylenol every 8 hours as needed for fevers. Drink plenty of fluids to stay hydrated. Follow up with your OB within 1 week for repeat blood tests and an ultrasound. If you experience high or persistent fevers, abdominal pain, bleeding, or any other concerning symptoms, return to the ER immediately. For your daily nausea and vomiting, sheepskin pickler and take the vitamin B6 exactly as prescribed. - Post Discharge Activity
[2020-02-12] MEDS ORDERED: ONDANSETRON 4 MG/2 ML VIAL ONE (18:43)
[2020-02-12 18:48] LABS: BASO % 1.4 % (0-2.0); EOS % 3.1 % (0-4.5); HEMATOCRIT 40.7 % (32.4-45.2); HEMOGLOBIN 13.4 GM/dl (10.7-15.3); MCH 28.9 pg (25.7-33.7); MCHC 32.9 g/dl (32.0-36.0); MEAN CELL VOLUME 87.8 fl (80-96); MEAN PLT VOLUME 7.9 fl (7.5-11.1); MONO % 7.8 % (3.8-10.2); NEUT % 75.7 % (42.8-82.8); PLATELET COUNT 382 K/MM3 (134-434); RBC 4.64 M/mm3 (3.60-5.2); RDW 12.8 % (11.6-15.6); WHITE BLOOD COUNT 8.7 K/mm3 (4.0-10.8)
[2020-02-12 19:05] LABS: EPITHELIAL CELLS FEW /hpf
[2020-02-12 19:06] LABS: ALBUMIN 3.9 g/dl (3.4-5.0); BILIRUBIN,TOTAL 0.5 mg/dl (0.2-1); CALCIUM 8.9 mg/dl (8.5-10); CREATININE 0.6 mg/dl (0.55-1.3); POTASSIUM 3.7 mmol/L (3.5-5.1); TOT PROT 7.2 g/dl (6.4-8.2)
[2020-02-12 19:49] VITALS: TEMP 98.8
[2020-02-12] MEDS ORDERED: SODIUM CHLORIDE 0.9% 500 ML INFUS.BAG IV ONE (20:01)
--- NOTE | 2020-02-12 20:19 | PDOC ---
*Physical Exam - Vital Signs Last Vital Signs Temp Pulse Resp BP Pulse Ox 98.8 F 120 H 18 138/83 99 02/12/20 19:49 02/12/20 19:49 02/12/20 19:49 02/12/20 18:00 02/12/20 19:49 - Physical Exam 02/12/20 20:19 Patient's care endorsed to me by Dr. Landeros at the end of his shift, patient is 24 YOF in 1st trimester who p/w nausea and fever, with associated tachycardia on vitals (although also noted to me anxious initially). Pending IV fluids, remaining labs, and reassessment. ED Treatment Course - LABORATORY CBC & Chemistry Diagram: 02/12/20 18:42 02/12/20 18:47 - ADDITIONAL ORDERS Additional order review: Laboratory Results 02/12/20 02/12/20 18:47 18:42 Sodium 135 L Potassium 3.7 Chloride 105 Carbon Dioxide 21 Anion Gap 9 BUN 6.0 L Creatinine 0.6 Est GFR (CKD-EPI)AfAm 145.80 Est GFR (CKD-EPI)NonAf 125.80 Random Glucose 123 H Calcium 8.9 Total Bilirubin 0.5 AST 69 H ALT 65 H Alkaline Phosphatase 49 Total Protein 7.2 Albumin 3.9 Urine Color Yellow Urine Appearance Clear Urine pH 8.5 H Urine Protein Negative Urine Glucose (UA) Negative Urine Ketones Negative Urine Blood Trace-intact Urine Nitrite Negative Urine Bilirubin Negative Urine Urobilinogen 0.2 Ur Leukocyte Esterase Negative Urine RBC 5-10 Urine WBC 0-2 Ur Transition Epith Cell Few Urine Bacteria Rare 02/12/20 18:42 RBC 4.64 MCV 87.8 MCHC 32.9 RDW 12.8 MPV 7.9 Neutrophils % 75.7 Lymphocytes % 12.0 Monocytes % 7.8 Eosinophils % 3.1 Basophils % 1.4 - Medications Given in the ED: ED Medications Discontinued Medications Generic Name Dose Route Start Last Admin Trade Name Freq PRN Reason Stop Dose Admin Acetaminophen 1,000 mg 02/12/20 18:22 02/12/20 18:50 Ofirmev Injection - IVPB 02/12/20 18:23 1,000 mg ONCE ONE Administration Sodium Chloride 1,000 mls @ 1,000 mls/hr 02/12/20 18:22 02/12/20 18:30 Normal Saline - IV 02/12/20 19:21 1,000 mls/hr ASDIR STA Administration Ondansetron HCl 4 mg 02/12/20 18:22 02/12/20 18:45 Zofran Injection IVPB 02/12/20 18:23 4 mg ONCE ONE Administration Sodium Chloride 1,000 ml 02/12/20 20:01 02/12/20 20:00 Normal Saline - IV 02/12/20 20:02 1,000 ml ONCE ONE Administration Medical Decision Making - Medical Decision Making 02/12/20 20:20 Provider Orders Category Date Time Status Isolation Precautions As directed Care 02/12/20 18:22 Active BETA-HCG,QUANTITATIVE Stat Lab 02/12/20 18:47 Results CBC WITH DIFFERENTIAL Stat Lab 02/12/20 18:42 Completed COMP METABOLIC PANEL Stat Lab 02/12/20 18:47 Results COVID-19 Stat Lab 02/12/20 18:54 Received UA ([facility] ONLY) Stat Lab 02/12/20 18:42 Completed URINE MICROSCOPIC (LIZY) Stat Lab 02/12/20 18:42 Completed Acetaminophen Injection [Ofirmev Injection -] Medication 02/12/20 18:22 Discontinued 1,000 mg IVPB ONCE ONE Ondansetron Injection [Zofran Injection] Medication 02/12/20 18:43 Discontinued 4 mg .ROUTE .STK-MED ONE Ondansetron Injection [Zofran Injection] Medication 02/12/20 18:22 Discontinued 4 mg IVPB ONCE ONE Sodium Chloride [Normal Saline -] Medication 02/12/20 20:01 Discontinued 1,000 ml IV ONCE ONE Sodium Chloride [Normal Saline -] 1,000 ml Medication 02/12/20 18:22 Discontinued IV ASDIR URINE CULTURE Stat Micro 02/12/20 18:47 Received Medications Discontinued Medications Generic Name Dose Route Start Last Admin Trade Name Freq PRN Reason Stop Dose Admin Acetaminophen 1,000 mg 02/12/20 18:22 02/12/20 18:50 Ofirmev Injection - IVPB 02/12/20 18:23 1,000 mg ONCE ONE Administration Sodium Chloride 1,000 mls @ 1,000 mls/hr 02/12/20 18:22 02/12/20 18:30 Normal Saline - IV 02/12/20 19:21 1,000 mls/hr ASDIR STA Administration Ondansetron HCl 4 mg 02/12/20 18:22 09/13/20 18:45 Zofran Injection IVPB 02/12/20 18:23 4 mg ONCE ONE Administration Ondansetron HCl Confirm 02/12/20 18:43 Zofran Injection Administered 02/12/20 18:44 Dose 4 mg .ROUTE .STK-MED ONE Sodium Chloride 1,000 ml 02/12/20 20:01 02/12/20 20:00 Normal Saline - IV 02/12/20 20:02 1,000 ml ONCE ONE Administration Lab Results WBC 8.7 K/mm3 (4.0-10.8) 02/12/20 18:42 RBC 4.64 M/mm3 (3.60-5.2) 02/12/20 18:42 Hgb 13.4 GM/dl (10.7-15.3) 02/12/20 18:42 Hct 40.7 % (32.4-45.2) 02/12/20 18:42 MCV 87.8 fl (80-96) 02/12/20 18:42 MCH 28.9 pg (25.7-33.7) 02/12/20 18:42 MCHC 32.9 g/dl (32.0-36.0) 02/12/20 18:42 RDW 12.8 % (11.6-15.6) 02/12/20 18:42 Plt Count 382 K/MM3 (134-434) 02/12/20 18:42 MPV 7.9 fl (7.5-11.1) 02/12/20 18:42 Absolute Neuts (auto) 6.6 K/mm3 02/12/20 18:42 Neutrophils % 75.7 % (42.8-82.8) 02/12/20 18:42 Lymphocytes % 12.0 % (8-40) 02/12/20 18:42 Monocytes % 7.8 % (3.8-10.2) 02/12/20 18:42 Eosinophils % 3.1 % (0-4.5) 02/12/20 18:42 Basophils % 1.4 % (0-2.0) 02/12/20 18:42 Sodium 135 mmol/L (136-145) L 02/12/20 18:47 Potassium 3.7 mmol/L (3.5-5.1) 02/12/20 18:47 Chloride 105 mmol/L (98-107) 02/12/20 18:47 Carbon Dioxide 21 mmol/L (21-32) 02/12/20 18:47 Anion Gap 9 MMOL/L (8-16) 02/12/20 18:47 BUN 6.0 mg/dl (7-18) L 02/12/20 18:47 Creatinine 0.6 mg/dl (0.55-1.3) 02/12/20 18:47 Est GFR (CKD-EPI)AfAm 145.80 02/12/20 18:47 Est GFR (CKD-EPI)NonAf 125.80 02/12/20 18:47 Random Glucose 123 mg/dl (74-106) H 02/12/20 18:47 Calcium 8.9 mg/dl (8.5-10) 02/12/20 18:47 Total Bilirubin 0.5 mg/dl (0.2-1) 02/12/20 18:47 AST 69 U/L (15-37) H 02/12/20 18:47 ALT 65 U/L (13-61) H 02/12/20 18:47 Alkaline Phosphatase 49 U/L (45-117) 02/12/20 18:47 Total Protein 7.2 g/dl (6.4-8.2) 02/12/20 18:47 Albumin 3.9 g/dl (3.4-5.0) 02/12/20 18:47 Urine Color Yellow 02/12/20 18:42 Urine Appearance Clear 02/12/20 18:42 Urine pH 8.5 (4.5-8) H 02/12/20 18:42 Urine Protein Negative (NEGATIVE) 02/12/20 18:42 Urine Glucose (UA) Negative (NEGATIVE) 02/12/20 18:42 Urine Ketones Negative (NEGATIVE) 02/12/20 18:42 Urine Blood Trace-intact (NEGATIVE) 02/12/20 18:42 Urine Nitrite Negative (NEGATIVE) 02/12/20 18:42 Urine Bilirubin Negative (NEGATIVE) 02/12/20 18:42 Urine Urobilinogen 0.2 (0.2-1.0) 02/12/20 18:42 Ur Leukocyte Esterase Negative (NEGATIVE) 02/12/20 18:42 Urine RBC 5-10 /hpf (0-4) 02/12/20 18:42 Urine WBC 0-2 (NEGATIVE) 02/12/20 18:42 Ur Transition Epith Cell Few /hpf 02/12/20 18:42 Urine Bacteria Rare /hpf (NEGATIVE) 02/12/20 18:42 Patient states feels much better, no more nausea, has appetite and tolerates PO here in the department. She has received 2L IVF and VSS at the time of dispo, last HR is 90 at rest. She is appropriate for discharge home with close outpatient f/u with fertility provider and PCP. Return precautions are discussed, Rx sent for vitamin B6 for her daily nausea. Discharge - Discharge Information Problems reviewed: Yes Clinical Impression/Diagnosis: Nausea Fever Qualifiers: Fever type: unspecified Qualified Code(s): R50.9 - Fever, unspecified Condition: Stable Disposition: HOME - Admission No - Additional Discharge Information Prescriptions: Pyridoxine HCl (Vitamin B6) [Vitamin B-6] 25 mg PO TID #30 tablet - Follow up/Referral - Patient Discharge Instructions Patient Printed Discharge Instructions: DI for Fever (Symptom) -- Adult Additional Instructions: Take 1000mg tylenol every 8 hours as needed for fevers. Drink plenty of fluids to stay hydrated. Follow up with your OB within 1 week for repeat blood tests and an ultrasound. If you experience high or persistent fevers, abdominal pain, bleeding, or any other concerning symptoms, return to the ER immediately. For your daily nausea and vomiting, shrimp picker and take the vitamin B6 exactly as prescribed. - Post Discharge Activity
[2020-02-12 20:37] VITALS: BP 121/65; PULSE 90
== END 2020-02-12 20:55 | disposition home or self-care (01) ==
LOC: SUPCPDRO 18:00 → FER 18:00
PROC: 3E0333Z Introduction of Anti-inflammatory into Peripheral Vein, Percutaneous Approach (ICD-10-PCS; principal; 2020-02-12)
PROC: 3E033GC Introduction of Other Therapeutic Substance into Peripheral Vein, Percutaneous Approach (ICD-10-PCS; 2020-02-12)
PROC: 3E0337Z Introduction of Electrolytic and Water Balance Substance into Peripheral Vein, Percutaneous Approach (ICD-10-PCS; 2020-02-12)
DX: R11.0 Nausea (principal); R50.9 Fever, unspecified
CPT/HCPCS: 36415; 80053; 81003; 81015; 84702; 85025; 87086; 99284-25; J0131; U0003